=== PATIENT | male | born 1965 | race Caucasian/White ===

== ENCOUNTER 2016-11-26 20:16 | Inpatient (IN) | payer OTHER ==
[2016-11-26 20:22] VITALS: BMI 27.1
--- NOTE | 2016-11-26 20:30 | PDOC ---
History of Present Illness - General History Source: Patient Exam Limitations: No Limitations - History of Present Illness Initial Comments: 11/26/16 20:41 The patient is a 51 year old male, with a significant past medical history of prostatitis, who presents to the emergency department with fever and nausea for the past 3 days. He states that his fever has been as high as 104 degrees F. He has been taking Tylenol every 5 hours and the fever is currently 101.4 degrees F. He notes that he gardens alot and there are alot of deer on his property. He reports that he talked to his PMD who advised him to come to the ED for evaluation. The patient denies chest pain, shortness of breath, headache and dizziness. Denies chills, vomit, diarrhea and constipation. Denies dysuria, frequency, urgency and hematuria. Allergies: None Past surgical history: None reported Social history: No alcohol, tobacco or drug use reported PMD - Dr. Roger Parker <Blake Kent - Last Filed: 11/26/16 20:41> <Emily Lee - Last Filed: 11/27/16 06:28> - General Chief Complaint: SIRS, Suspected/Possible Stated Complaint: PCP SENT/FEVER Time Seen by Provider: 11/26/16 20:30 Past History <Blake Kent - Last Filed: 11/26/16 20:41> - Past Medical History Psychiatric Problems: Yes (depression) Other medical history: enlarged prostate. - Psycho/Social/Smoking Cessation Hx Anxiety: No Suicidal Ideation: No Smoking History: Never smoked Have you smoked in the past 12 months: No Information on smoking cessation initiated: No Hx Alcohol Use: No Drug/Substance Use Hx: No Substance Use Type: None <Emily Lee - Last Filed: 11/27/16 06:28> - Past Medical History Allergies/Adverse Reactions: Allergies Allergy/AdvReac Type Severity Reaction Status Date / Time No Known Allergies Allergy Verified 11/26/16 20:22 Home Medications: Ambulatory Orders Alfuzosin HCl [Uroxatral] 10 mg PO DAILY 11/26/16 Doxycycline Hyclate [Vibramycin] 100 mg PO BID #42 capsule 11/26/16 Paroxetine HCl [Paxil] 20 mg PO DAILY 11/26/16 Review of Systems - Review of Systems Able to Perform ROS?: Yes Comments:: 11/26/16 20:41 GENERAL/CONSTITUTIONAL: (+) No chills. No weakness. HEAD, EYES, EARS, NOSE AND THROAT: No change in vision. No ear pain or discharge. No sore throat. CARDIOVASCULAR: No chest pain or shortness of breath RESPIRATORY: No cough, wheezing, or hemoptysis. GASTROINTESTINAL: (+) Nausea. No vomiting, diarrhea or constipation. GENITOURINARY: No dysuria, frequency, or change in urination. MUSCULOSKELETAL: No joint or muscle swelling or pain. No neck or back pain. SKIN: No rash NEUROLOGIC: No headache, vertigo, loss of consciousness, or change in strength/ sensation. ENDOCRINE: No increased thirst. No abnormal weight change HEMATOLOGIC/LYMPHATIC: No anemia, easy bleeding, or history of blood clots. ALLERGIC/IMMUNOLOGIC: No hives or skin allergy. <Blake Kent - Last Filed: 11/26/16 20:41> *Physical Exam - Vital Signs Last Vital Signs Temp Pulse Resp BP Pulse Ox 101.5 F H 105 H 20 114/69 100 11/26/16 20:19 11/26/16 20:19 11/26/16 20:19 11/26/16 20:19 11/26/16 20:19 - Physical Exam Comments: 11/26/16 20:41 GENERAL: Awake, alert, and fully oriented, in no acute distress HEAD: No signs of trauma, normocephalic, atraumatic EYES: PERRLA, EOMI, sclera anicteric, conjunctiva clear ENT: Auricles normal inspection, hearing grossly normal, nares patent, oropharynx clear without exudates. Moist mucosa NECK: Normal ROM, supple, no lymphadenopathy, JVD, or masses LUNGS: No distress, speaks full sentences, clear to auscultation bilaterally HEART: Regular rate and rhythm, normal S1 and S2, no murmurs, rubs or gallops, peripheral pulses normal and equal bilaterally. ABDOMEN: Soft, nontender, normoactive bowel sounds. No guarding, no rebound. No masses EXTREMITIES: Normal inspection, Normal range of motion, no edema. No clubbing or cyanosis. NEUROLOGICAL: Cranial nerves II through XII grossly intact. Normal speech, normal gait, no focal sensorimotor deficits SKIN: (+) Target lesion dorsal aspect of the upper arm superior to the elbow. Warm, Dry, normal turgor, no rashes or lesions noted. <Blake Kent - Last Filed: 11/26/16 20:41> - Vital Signs Last Vital Signs Temp Pulse Resp BP Pulse Ox 101.5 F H 105 H 20 114/69 100 11/26/16 20:19 11/26/16 20:19 11/26/16 20:19 11/26/16 20:19 11/26/16 20:19 <Emily eLe - Last Filed: 11/27/16 06:28> ED Treatment Course - LABORATORY CBC & Chemistry Diagram: 11/26/16 20:56 11/26/16 20:56 <Emily Lee - Last Filed: 11/27/16 06:28> Medical Decision Making - Medical Decision Making 11/27/16 06:25 Pt comes with 2 weeks of malaise and 1 week of fever unremitting. Unclear source. When I ask about tick bites, pt says that he [place] in [place] and states that he could have been exposed to lyme disease. Pt has a large target lesion (erythema migrans) on his right posterior elbow upper arm region. Pt has a hx of prostatitis, but he has no dysuria, and no rectal or abdominal or bladder pain. Pt has normal looking CBC, however, he remains febrlie in the ER despite Q4-5 hourly tylenol doses. He is dehydrated with ketones in his urine and hyponatremia, and he appears ill. a result I will admit him to his PMD Dr. Pedraza. I gave report to Dr. Carr who is director industrial relations. Lyme tuiters and blood cultures sent. Pt treated with NSS and doxycycline IV. <Emily Lee - Last Filed: 11/27/16 06:28> *DC/Admit/Observation/Transfer - Attestations Scribe Attestion: 11/26/16 20:44 Documentation prepared by Blake Kent, acting as medical assistant internal medicine for Emily Lee MD <Blake Kent - Last Filed: 11/26/16 20:41> - Discharge Dispostion Admit: Yes <Emily Lee - Last Filed: 07/01/17 06:28> Diagnosis at time of Disposition: Erythema migrans (Lyme disease), Fever, Malaise and fatigue, Hyponatremia, Dehydration, Sepsis - Discharge Dispostion Condition at time of disposition: Improved - Prescriptions - Referrals - Patient Instructions - Post Discharge Activity
[2016-11-26] MEDS ORDERED: SODIUM CHLORIDE 0.9% 1000 ML INFUS.BAG IV PRN (20:32)
[2016-11-26] MEDS ORDERED: DOXYCYCLINE INJECTION 100 MG in DEXTROSE 5%-WATER - 150 ML IVPB ONE (20:40)
[2016-11-26] MEDS ORDERED: DOXYCYCLINE HYCLATE 100 MG VIAL ONE (20:44)
[2016-11-26 21:09] LABS: VENOUS BLOOD GAS HCO3 25.8 meq/L (19-25); VENOUS PH 7.41 (7.32-7.42)
[2016-11-26 21:24] LABS: BASOPHIL 0.7 % (0-2.0); EOSINOPHIL 0.2 % (0-4.5); MCH 30.8 pg (25.7-33.7); MCHC 33.4 g/dl (32.0-35.9); MEAN CELL VOLUME 92.2 fl (80-96); MEAN PLT VOLUME 7.6 fl (7.5-11.1); NEUTROPHILS 88.3 % (42.8-82.8); PLATELET COUNT 167 K/MM3 (134-434); WHITE BLOOD COUNT 4.6 K/mm3 (4.0-10.0)
[2016-11-26 21:30] LABS: URINE APPEARANCE CLEAR; URINE BILIRUBIN NEGATIVE (NEGATIVE); URINE BLOOD NEGATIVE (NEGATIVE); URINE COLOR YELLOW; URINE GLUCOSE (UA) NEGATIVE (NEGATIVE); URINE KETONE 1+ (NEGATIVE); URINE LEUK ESTERASE NEGATIVE (NEGATIVE); URINE NITRITE NEGATIVE (NEGATIVE); URINE UROBILINOGEN NEGATIVE E.U./dl (0.2-1.0)
[2016-11-26 21:33] LABS: URINE PROTEIN 1+ (NEGATIVE)
[2016-11-26 21:41] LABS: INR 1.33 (0.82-1.09); PROTHROMBIN TIME (PATIENT) 14.7 SEC (9.98-11.88)
[2016-11-26 21:43] LABS: ACTIVATED PTT 31.1 SECONDS (26.9-34.4)
[2016-11-26 21:52] LABS: ALBUMIN 3.3 g/dl (3.4-5.0); ANION GAP 10 (8-16); CALCIUM 8.3 mg/dL (8.5-10.1); CO2 25 mmol/L (21-32); CREATININE 1.2 mg/dL (0.7-1.3); GLUCOSE,RANDOM 92 mg/dL (74-106); SGOT/AST 34 U/L (15-37); SGPT/ALT 41 U/L (12-78)
[2016-11-26 21:55] LABS: ALK PHOS 81 U/L (45-117); BILIRUBIN,TOTAL 0.8 mg/dL (0.2-1.0); TOT PROT 6.3 g/dl (6.4-8.2); TROPONIN I < 0.02 ng/ml (0.00-0.05)
[2016-11-26] MEDS ORDERED: ACETAMINOPHEN 1000 MG/100 ML VIAL (NON FORMULARY) IVPB ONE (23:06)
[2016-11-26] MEDS ORDERED: IBUPROFEN 600 MG TABLET (FP) PO ONE ×2 (23:06→23:43)
[2016-11-26] MEDS ORDERED: METRONIDAZOLE 500 MG PREMIXED 100 ML IVPB ONE (23:09)
[2016-11-26] MEDS ORDERED: cefTRIAXone 1 GM/50 ML BAG (PRE-DOCKED) IVPB ONE (23:15)
[2016-11-26] MEDS ORDERED: ACETAMINOPHEN INJECTION 100 ML IVPB ONE (23:43)
[2016-11-27] MEDS ORDERED: CEFTRIAXONE 50 ML ONE (01:28)
[2016-11-27] MEDS ORDERED: ACETAMINOPHEN 325 MG TABLET (FP) PO PRN (02:45)
--- NOTE | 2016-11-27 07:30 | PN ---
Progress Note (short form) - Note Progress Note: See H&P dictated.
--- NOTE | 2016-11-27 08:10 | HP ---
DATE OF ADMISSION: HISTORY: The patient is a 51-year-old male who was admitted to the emergency room with a 3-day history of high fevers, chills, and a rash on the right arm. The patient comes in to the emergency room with fever, chills thinking that this was related to his prostate. The patient had seen Dr. Pete, his urologist, on Tuesday with fever and some tenderness of the prostate on exam. At that time, he was sent home for observation. He continued to have fevers and went back to see his urologist on . At that time, the patient states he was given a dose of IV gentamicin and started on Bactrim. After resting all day Tuesday, he awoke later in the afternoon with a temperature of 104. He contacted the answering service. Dr. Mcintyre advised him to come to the emergency room. 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 The patient states that he has multiple deer on his lawn in [place], [place], and there was a strong suspicion for Lyme disease. In the emergency room, he was given doxycycline intravenously. He was given Vibramycin injection, Rocephin, Flagyl, and some Motrin. The patient states he feels 100% better this morning. His temperature is down to 98.6. Blood pressure recorded 134/52 then 93/50. A repeat blood pressure is pending. His labs have a Lyme titer that is pending. He had no elevated white count. He is presently being elevated here in the hospital and awaiting Infectious Disease and evaluation. PAST MEDICAL HISTORY: Generalized anxiety disorder on Paxil therapy, history of longstanding prostatitis, history of arthroscopic surgery of the right shoulder. ALLERGIES: No known allergies to medication. SOCIAL HISTORY: Nonsmoker. No significant ETOH. He works in construction. FAMILY HISTORY: Mother with anxiety disorder, premature ventricular contractions hypertension. Father with aortic stenosis, hypertension, hypercholesterolemia. One sister in good health. MEDICATIONS: Include Paxil 20 mg once daily and Uroxatral 1 tablet daily. REVIEW OF SYSTEMS: Presently no headache, lightheadedness, dizziness. No neck pain. No neck stiffness. No chest pain, no palpitations, no shortness of breath, no cough, no hemoptysis, no abdominal pain, no nausea, no vomiting, no diarrhea. No dysuria, urgency, frequency, or hematuria. PHYSICAL EXAMINATION: Vital Signs: Temperature 98.6, blood pressure 134/52 then 93/50, heart rate is 65, respirations are 18. Neck: Supple. Carotids 2+. No bruits are auscultated. Chest: Clear to percussion and auscultation. There are no adventitious sounds noted. Cardiac: S1, S2. No murmurs or gallops are auscultated. No heaves or thrills are noted. PMI in the 5th intercostal space mid clavicular line. Abdomen: Soft and nontender. No hepatosplenomegaly. No rebound. No guarding. Extremities: No calf tenderness. No pedal edema. Right arm at the elbow region there is an erythematous bullseye target-type lesion consistent with erythema chronicum migrans. Neurologic: Grossly intact. IMPRESSION: 1. Early Lyme disease. 2. Prostatitis. 3. Generalized anxiety disorder. 4. Prostatitis history. PLAN: Continue antibiotic therapy. Presently on IV Rocephin but will await Infectious Disease evaluation for change in antibiotics and possible recommendations for p.o. therapy and discharge home. evaluation with Dr. Pete. IV fluids. Follow vital signs and monitor with Infectious Disease. SOCORRO GAMEZ M.D. [id number]
[2016-11-27 09:05] LABS: BASOPHIL 1.2 % (0-2.0); EOSINOPHIL 0.9 % (0-4.5); MCH 31.4 pg (25.7-33.7); MEAN CELL VOLUME 92.5 fl (80-96); MEAN PLT VOLUME 7.6 fl (7.5-11.1); NEUTROPHILS 64.9 % (42.8-82.8); PLATELET COUNT 152 K/MM3 (134-434); RDW 14.4 % (11.9-15.9); WHITE BLOOD COUNT 3.4 K/mm3 (4.0-10.0)
[2016-11-27 09:15] LABS: ALBUMIN 3.2 g/dl (3.4-5.0); ALK PHOS 77 U/L (45-117); ANION GAP 8 (8-16); BILIRUBIN,TOTAL 0.8 mg/dL (0.2-1.0); CALCIUM 8.3 mg/dL (8.5-10.1); CO2 27 mmol/L (21-32); CREATININE 1.1 mg/dL (0.7-1.3); GLUCOSE,RANDOM 90 mg/dL (74-106); SGOT/AST 44 U/L (15-37); SGPT/ALT 45 U/L (12-78); TOT PROT 6.4 g/dl (6.4-8.2)
[2016-11-27] MEDS ORDERED: cefTRIAXone 1 GM/50 ML BAG (PRE-DOCKED) IVPB SCH (10:00)
[2016-11-27] MEDS ORDERED: PARoxetine HCL 20 MG TABLET (FP) PO SCH (10:00)
[2016-11-27 10:46] VITALS: BP 127/57; PULSE 63; TEMP 98.5
--- NOTE | 2016-11-27 11:23 | PN ---
Progress Note (short form) - Note Progress Note: ID Fever and chills body aches x 3 days Now with rash right elbow Selected Entries 11/27/16 10:00 Temperature 98.5 F Pulse Rate 63 Respiratory 18 Rate Blood Pressure 127/57 Microbiology Laboratory Tests 11/26/16 11/27/16 11/27/16 20:46 08:20 08:20 WBC 3.4 L Hgb 15.9 Plt Count 152 AST 44 H D ALT 45 Alkaline Phosphatase 77 Lyme Screen IgG & IgM Pending Lyme Disease IgG/IgM Pending Lyme ? Anaplsmosis Plan Can discharge doxycycline 100mg bid 14 days Sheeba PEREZ Problem List - Problems (1) Erythema migrans (Lyme disease) Code(s): A69.20 - LYME DISEASE, UNSPECIFIED (2) Anaplasmosis Code(s): A77.49 - OTHER EHRLICHIOSIS
--- NOTE | 2016-11-27 11:56 | CONS ---
DATE OF CONSULTATION: DATE OF DICTATION: 11/27/2016 HISTORY OF PRESENT ILLNESS: This is a 51-year-old male who I am asked to see at the request of Dr. Parker for evaluation of fever to 104. The patient was in his usual state of good health with really no prior medical history until 3 days prior to admission when he developed onset of fevers, weakness, and generalized body aches. The following day, he referred himself to his urologist, Dr. Pete, as according to the patient he has a history of chronic prostatitis recurrent over the last [address] Pete, had a prostate examination, and on this basis was given a dose of Bactrim and IV gentamicin in the office. Because of persistent fever to 104 yesterday, he was admitted for further evaluation and treatment. The patient lives in [facility]. He has extensive outdoor exposure, though no recent recall of tick bites. He denies any joint pain or joint swelling. He has had mild headaches but no cough, coryza, abdominal pain, diarrhea, or urinary complaints at this time. PHYSICAL EXAMINATION:General: He was a well-nourished appearing male in no acute distress. Vital Signs: The temperature was 98.5, pulse 63, blood pressure 127/57, respirations 18, temperature max following admission 102.8. Neck: Supple, without adenopathy. Lungs: Clear to P & A. Heart: S1, S2, regular rhythm. Abdomen: Soft, nontender. No organomegaly. Extremities: No clubbing, cyanosis, or edema. Skin: Revealed a circular erythematous lesion on his right arm greater than 5 cm in longest diameter. LABORATORY DATA: The white count was 3.4, hemoglobin 15.9, platelets 152. No bands noted on the differential. Chemistries: AST 44, ALT 44, alkaline phosphatase 71. Urinalysis negative for leukocyte esterase. Chest x-ray shows no acute infiltrate. ASSESSMENT: A 51-year-old man with febrile illness, physical examination consistent with rash of erythema migrans. This represents early Lyme infection. Leukopenia, mild thrombocytopenia, elevated liver enzyme noted. 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 RECOMMENDATIONS: As discussed with Dr. Parker, his blood cultures from admission thus far no growth. He looks well with no fever. I feel he can be discharged on oral doxycycline 100 mg p.o. b.i.d. with warning for sun exposure while on doxycycline as the patient is headed for a vacation in [place] probably tomorrow. Patient requested that he be HIV tested which I will perform. Serology already ordered for Lyme infection, though will not change the management. Will also order anaplasma PCR. Dr. Parker will follow him as an outpatient. JOHNNY WATSON M.D. [id number]
[2016-11-27 13:11] LABS: HIV 1 & 2 AB NEGATIVE; HIV 1 AGp24 NEGATIVE
--- NOTE | 2016-11-27 14:55 | EKG ---
Test Reason : Blood Pressure : / mmHG Vent. Rate : 086 BPM Atrial Rate : 086 BPM P-R Int : 150 ms QRS Dur : 086 ms QT Int : 324 ms P-R-T Axes : 037 045 020 degrees QTc Int : 387 ms NORMAL SINUS RHYTHM NORMAL ECG WHEN COMPARED WITH ECG OF 04-NOV-2006 10:09, VENT. RATE HAS INCREASED BY 31 BPM NONSPECIFIC T WAVE ABNORMALITY NOW EVIDENT IN LATERAL LEADS Confirmed by WEST PEREZ, TYRA ([id number]) on 11/27/2016 2:55:08 PM Referred By: Confirmed By:TYRA DODSON MD
== END 2016-11-27 11:40 | disposition home or self-care (01) | DRG 868 ==
LOC: JER 20:16 → JERBED 23:47 → J8W 11-27 02:14
PROVIDERS: ADMIT Emergency Medicine; ATTEND Emergency Medicine
DX: A69.20 Lyme disease, unspecified (principal); E87.1 Hypo-osmolality and hyponatremia; N41.9 Inflammatory disease of prostate, unspecified; F32.9 Major depressive disorder, single episode, unspecified; N40.0 Benign prostatic hyperplasia without lower urinary tract symptoms; R53.81 Other malaise; E86.0 Dehydration; A77.49 Other ehrlichiosis; F41.8 Other specified anxiety disorders
CPT/HCPCS: 36415; 71010-TC; 80053; 81003; 81015; 82550; 82553; 82803; 83605; 84484; 85025; 85610; 85730; 86618; 86850; 86900; 86901; 87040; 87086; 87389; 93005; 93010; 99284-25